=== PATIENT | female | born 1955 | race Caucasian/White ===

== ENCOUNTER → 2018-05-04 | Day surgery (SDC) | payer MEDICARE ==
[~2018-05-04] MED LIST: AMLO10TA6 PO; BIMA2.5D OP; FENO134C PO; FLUT9.9S NS; IV RINGERS,LACTATED 1000ML 1,000 ML IV SCH; LIDOCAINE 1% PF 2 ML VIAL. ID PRN; LISI1TAB3 PO; MIDAZOLAM HCL/PF 2 MG/2 ML VIAL. IV PRN; PROPOFOL 40 ML IV ONE; fentaNYL PF VIAL 100 MCG/2 ML VIAL IV PRN
[2018-05-04 13:54] VITALS: BP 122/79
--- NOTE | 2018-05-05 15:08 | PATHOLOGY ---
[facility] Accession Number: [id number] . 01 Material submitted: . PART A: DUODENAL BX PART B: RANDOM COLON PART C: DESCENDING COLON POLYPS . 01 Clinical history: . Pre-OP DX: Abdominal pain, change in bowels, diarrhea Post-OP DX: Rule out celiac disease . 02 Diagnosis: A. Duodenal biopsies: - Mild nonspecific duodenitis. . B. Random colon biopsies: - No significant pathologic abnormalities. . C. Descending colon polypectomy: - Tubular adenoma. (JPM:[place]; 05/05/2018) QMS/05/05/2018 . 02 Comment: Sections of the duodenal biopsies show mild chronic inflammation with a few scattered admixed neutrophils. There are no sprue-like changes. . Sections of the random colon biopsy reveal multiple segments of colonic mucosa. There is no evidence of a chronic destructive colitis, lymphocytic colitis, or collagenous colitis. . Sections of the descending colon polypectomy reveal a tubular adenoma showing no high-grade dysplasia or evidence of malignancy. (JPM:[place]; 05/05/2018) . 02 Electronically signed: . Doanvan Carson MD, Pathologist NPI- [id number] . 01 Gross description: . A. Received in formalin labeled "Kaitlin Navarro, duodenal," are multiple segments of malin soft tissue measuring 2.3 x 0.5 x 0.2 cm in aggregate dimensions. The specimen is filtered and entirely submitted in cassette A1. . B. Received in formalin labeled "Kaitlin Navarro, random colon," are multiple segments of malin soft tissue measuring 2.3 x 0.7 x 0.2 cm in aggregate dimensions. The specimen is filtered and entirely submitted in cassette B1. . C. Received in formalin labeled "Kaitlin Navarro, descending colon polyp," is a 0.9 x 0.5 x 0.4 cm polypoid piece of malin soft tissue. The margin is inked and the specimen is sectioned perpendicular to the margin and entirely submitted in cassette C1. (TSD; 05/04/2018) TOB/TOB . 02 Pathologist provided ICD-10: N84.0, N72, N85.9 . 02 CPT . 396138, [id number], [id number] Specimen Comment: A courtesy copy of this report has been sent to Specimen Comment: [phone], . Specimen Comment: Report sent to / DR STANLEY Specimen Comment: A duplicate report has been generated due to demographic updates. Performed at: [facility] [address], [place] [id number] MD Flavio Choi MD Phone: [phone] Performed at: 02 [facility] [address] [place], [place] [id number] MD Donavan Carson MD Phone: [phone]
== END | disposition home or self-care (01) ==
LOC: SURG 12:00
PROVIDERS: ATTEND Internal Medicine Gastroenterology
DX: D12.4 Benign neoplasm of descending colon (principal); K57.30 Diverticulosis of large intestine without perforation or abscess without bleeding; K64.0 First degree hemorrhoids; K29.80 Duodenitis without bleeding; K31.89 Other diseases of stomach and duodenum; I10 Essential (primary) hypertension; E78.00 Pure hypercholesterolemia, unspecified; Z82.49 Family history of ischemic heart disease and other diseases of the circulatory system; Z80.41 Family history of malignant neoplasm of ovary; Z72.89 Other problems related to lifestyle; Z88.6 Allergy status to analgesic agent; M19.90 Unspecified osteoarthritis, unspecified site; Z79.899 Other long term (current) drug therapy; Z90.49 Acquired absence of other specified parts of digestive tract; Z98.890 Other specified postprocedural states; Z98.51 Tubal ligation status
CPT/HCPCS: 43239; 45380; 45385; 88305; J2704

== ENCOUNTER → 2018-06-22 | Outpatient (CLI) | payer MEDICARE ==
[2018-05-04 13:54] VITALS: BP 122/79
[~2018-06-22] MED LIST changes: -IV RINGERS,LACTATED 1000ML 1,000 ML IV SCH; -LIDOCAINE 1% PF 2 ML VIAL. ID PRN; -MIDAZOLAM HCL/PF 2 MG/2 ML VIAL. IV PRN; -PROPOFOL 40 ML IV ONE; -fentaNYL PF VIAL 100 MCG/2 ML VIAL IV PRN
--- NOTE | 2018-06-22 11:36 | KCIC ---
MRI left shoulder without contrast dated 06/22/2018 9:30 AM Indication: Shoulder pain pain rating to avoid the back for 3 weeks .. Comparison: No comparison is available. Technique: Routine multiplanar multisequence imaging performed. . Findings: Intermediate T2 signal throughout the supraspinatus and infraspinatus portions of the rotator cuff. Articular and bursal surface partial tearing of the anterior supraspinatus footplate. There is a suspected full-thickness tear or near full-thickness tear anteriorly that measures about 7 mm maximum dimension. No significant cuff retraction. Subscapularis is thickened and intermediate in signal there may be mild full-thickness involvement of the upper margin of the subscapularis. Intermediate T2 signal within the substance of the long head biceps tendon proximally. Extra articular portion courses within the bicipital groove. There is increased signal of the biceps anchor. Mild blunted morphology of the posterior superior labrum with some linear signal in the labral substance. Mild degenerative change at the glenohumeral joint with thinning and surface irregularity of the glenoid cartilage. Near full-thickness cartilage loss at the central glenoid. There is also blunted morphology of the anterior inferior labrum. No significant joint effusion. No loose body. Mild hypertrophic change of the AC joint. Mild undersurface spurring of the acromium. Trace subacromial/subdeltoid bursal effusion. Suprascapular and spinoglenoid notches are clear. No significant muscle edema or muscle atrophy. IMPRESSION: 1. Moderate rotator cuff tendinopathy with small high-grade partial tear versus nonretracted full-thickness tear of the anterior supraspinatus footplate. 2. AC joint arthropathy with undersurface spurring of the acromium. 3. Mild proximal biceps tendinosis. 4. 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 There is degenerative tearing of the anterior and posterior labrum. Electronically signed by: Richard Leal MD (06/22/2018 11:33 AM) [id number]
== END | disposition home or self-care (01) ==
LOC: KCIC MRI 08:58
PROVIDERS: ATTEND Nurse Practitioner Family
DX: M19.012 Primary osteoarthritis, left shoulder (principal); M94.212 Chondromalacia, left shoulder
CPT/HCPCS: 73221